=== PATIENT | male | born 1945 | race African-American/Black ===

== ENCOUNTER 2017-12-22 08:38 | Emergency (ER) | payer MEDICARE, OTHER ==
[~2017-12-22] VITALS: Ht 182.9 cm; Wt 87.0 kg
[~2017-12-22 08:38] MED LIST: AMLO10TA80 PO; BUSPIRONE HCL PO; CLOP75TA16 PO; COLC0.6C3 MT; FOLI-43 MT; LEVO500T2 MT; LISI2.5T47 MT
[2017-12-22 08:41] VITALS: BP 132/60
[2017-12-22] MEDS ORDERED: PERMETHRIN 5% CREAM 60GM TOP ONE (09:00)
== END 2017-12-22 10:00 | disposition home or self-care (01) ==
LOC: ER 08:38
DX: M25.511 Pain in right shoulder (principal); R53.1 Weakness; R11.2 Nausea with vomiting, unspecified; I10 Essential (primary) hypertension; F17.210 Nicotine dependence, cigarettes, uncomplicated; I25.2 Old myocardial infarction; Z86.73 Personal history of transient ischemic attack (TIA), and cerebral infarction without residual deficits; Z88.6 Allergy status to analgesic agent; Z79.899 Other long term (current) drug therapy
CPT/HCPCS: 99283

== ENCOUNTER 2018-05-10 11:54 | Inpatient (IN) | payer MEDICARE, OTHER ==
[~2018-05-10] VITALS: Ht 182.9 cm; Wt 95.3 kg
[~2018-05-10 11:54] MED LIST changes: +FLUO-124 MT
[2018-05-10] MEDS ORDERED: SODIUM CHLORIDE 0.9% 1,000 ML IV ONE (12:54)
[2018-05-10] MEDS ORDERED: LEVETIRACETAM 500MG PREMIX 100 ML IV ONE (13:00)
[2018-05-10 14:29] LABS: CHLORIDE 101 mEq/L (98-107)
[2018-05-10 14:31] LABS: INR 1.1; PARTIAL THROMBOPLASTIN TIME 28.3 sec (23.4-31.0); PROTHROMBIN TIME 11.5 sec (9.1-11.1)
[2018-05-10 14:32] LABS: HEMATOCRIT. 33.6 % (42.0-52.0); HEMOGLOBIN. 10.9 g/dL (14.0-18.0); MEAN CORPUSCULAR HEMOGLOBIN 31.8 pg (28.0-32.0); MEAN PLATELET VOLUME 8.5 fl (7.4-10.4); PLATELET 235 x1000/uL (130-400); RED BLOOD CELL COUNT 3.43 mill/uL (4.7-6.1); RED CELL DISTRIBUTION WIDTH 18.2 % (11.6-14.6)
[2018-05-10 14:33] LABS: ETHANOL BLOOD < 10 mg/dL
[2018-05-10 14:59] LABS: PLATELET ESTIMATE NORMAL
[2018-05-10] MEDS ORDERED: CEFTRIAXONE 1 G PREMIX 50 ML IV ONE (18:00)
[2018-05-10 19:15] LABS: CLARITY URINE CLOUDY (CLEAR); COLOR URINE YELLOW (YELLOW); KETONES URINE 1+ (NEGATIVE); LEUKOCYTE ESTERASE URINE NEGATIVE (NEGATIVE); NITRITE URINE NEGATIVE (NEGATIVE); OCCULT BLOOD URINE 2+ (NEGATIVE); PROTEIN URINE 3+ (NEGATIVE); SPECIFIC GRAVITY URINE 1.018 (1.005-1.030); UROBILINOGEN URINE 0.2 E.U./dL (0.2-1.0)
[2018-05-10 19:29] LABS: *AMPHETAMINES SCREEN URINE NEGATIVE (NEGATIVE)
[2018-05-10 19:30] LABS: *BARBITURATES SCREEN URINE NEGATIVE (NEGATIVE); *BENZODIAZEPINES SCREEN URINE NEGATIVE (NEGATIVE); *COCAINE SCREEN URINE NEGATIVE (NEGATIVE); METHADONE URINE SCREEN NEGATIVE (NEGATIVE); OPIATES URINE SCREEN NEGATIVE (NEGATIVE); PHENCYCLIDINE URINE SCREEN NEGATIVE (NEGATIVE)
[2018-05-10 19:31] LABS: CANNABINOID URINE SCREEN NEGATIVE (NEGATIVE)
[2018-05-10 20:20] VITALS: BP 158/64
[2018-05-10 20:30] VITALS: BP 158/64
[2018-05-11] VITALS (7 sets, daily range): BP systolic 124–163; BP diastolic 54–97
[2018-05-11 07:48] LABS: BASOPHILS % 0.2 % (0.0-2.0); EOSINOPHILS % 0.2 % (0.0-5.0); HEMOGLOBIN. 10.1 g/dL (14.0-18.0); LYMPHOCYTES % 8.4 % (20.0-50.0); MEAN CORPUSCULAR HEMOGLOBIN 32.2 pg (28.0-32.0); MEAN CORPUSCULAR VOLUME 95.8 fL (80.0-94.0); MEAN PLATELET VOLUME 8.5 fl (7.4-10.4); MONOCYTES % 6.8 % (2.0-8.0); NEUTROPHILS % 84.4 % (40.0-76.0); PLATELET 181 x1000/uL (130-400); RED BLOOD CELL COUNT 3.14 mill/uL (4.7-6.1); RED CELL DISTRIBUTION WIDTH 18.1 % (11.6-14.6)
[2018-05-11 07:58] LABS: CHLORIDE 105 mEq/L (98-107)
[2018-05-11] MEDS ORDERED: MEDICATION NOT ON FORMULARY EA (Folic Acid 1 TAB) MT SCH (14:15)
[2018-05-11] MEDS ORDERED: MEDICATION NOT ON FORMULARY EA (Fluoxetine Hcl 1 CAP) MT SCH (14:15)
[2018-05-11] MEDS ORDERED: MEDICATION NOT ON FORMULARY EA (Clopidogrel Bisulfate (Plavix) 75 MG) PO SCH (14:15)
[2018-05-11] MEDS ORDERED: COLCHICINE MT SCH (14:15)
[2018-05-11] MEDS: FLUOXETINE HCL 20MG CAPSULE PO SCH (15:05)
[2018-05-11] MEDS: AMLODIPINE 10MG TABLET PO SCH (15:05)
[2018-05-11] MEDS: COLCHICINE 0.6MG TABLET PO SCH (15:05)
[2018-05-11] MEDS: CLOPIDOGREL 75MG TABLET PO SCH (15:05)
[2018-05-11] MEDS: FOLIC ACID 1MG TABLET PO SCH (15:05)
[2018-05-11] MEDS: CEFTRIAXONE 1 G PREMIX 50 ML IV SCH (17:59)
[2018-05-12] VITALS: BP 147/74
[2018-05-12 04:00] VITALS: BP 131/74
[2018-05-12 08:00] VITALS: BP 149/74
[2018-05-12] MEDS: COLCHICINE 0.6MG TABLET PO SCH (08:20)
[2018-05-12] MEDS: AMLODIPINE 10MG TABLET PO SCH (08:20)
[2018-05-12] MEDS: FLUOXETINE HCL 20MG CAPSULE PO SCH (08:20)
[2018-05-12] MEDS: CLOPIDOGREL 75MG TABLET PO SCH (08:20)
[2018-05-12] MEDS: FOLIC ACID 1MG TABLET PO SCH (08:20)
[2018-05-12 12:00] VITALS: BP_SYST 120; BP_SYST 147; BP_SYST 153; BP_DIAS 69; BP_DIAS 76; BP_DIAS 78
[2018-05-12] MEDS ORDERED: SODIUM CHLORIDE 0.9% 1,000 ML IV SCH (15:30)
[2018-05-12] MEDS ORDERED: IPRATROPIUM/ALBUTEROL 0.5-3(2.5)MG/3ML NEB INH PRN (15:30)
[2018-05-12] MEDS ORDERED: ACETAMINOPHEN 325MG TABLET PO PRN (15:30)
[2018-05-12] MEDS ORDERED: ONDANSETRON HCL 4MG/2ML INJ IV PRN (15:30)
[2018-05-12 16:00] VITALS: BP 142/70
[2018-05-12] MEDS: CEFTRIAXONE 1 G PREMIX 50 ML IV SCH (18:16)
[2018-05-12 18:59] LABS: BASOPHILS % 0.5 % (0.0-2.0); EOSINOPHILS % 2.5 % (0.0-5.0); HEMATOCRIT. 31.4 % (42.0-52.0); HEMOGLOBIN. 10.4 g/dL (14.0-18.0); MEAN CORPUSCULAR HEMOGLOBIN 32.5 pg (28.0-32.0); MEAN CORPUSCULAR VOLUME 98.2 fL (80.0-94.0); MEAN PLATELET VOLUME 8.5 fl (7.4-10.4); MONOCYTES % 8.6 % (2.0-8.0); NEUTROPHILS % 68.4 % (40.0-76.0); PLATELET 149 x1000/uL (130-400); RED BLOOD CELL COUNT 3.19 mill/uL (4.7-6.1); RED CELL DISTRIBUTION WIDTH 18.1 % (11.6-14.6)
[2018-05-12 19:17] LABS: CHLORIDE 103 mEq/L (98-107)
[2018-05-12 20:00] VITALS: BP 148/73
[2018-05-12] MEDS ORDERED: SODIUM CHLORIDE 0.9% INJ 3ML FLUSH IVF SCH (22:00)
[2018-05-13] VITALS (7 sets, daily range): BP systolic 114–156; BP diastolic 47–90
[2018-05-13 06:51] LABS: BASOPHILS % 0.7 % (0.0-2.0); EOSINOPHILS % 4.4 % (0.0-5.0); HEMATOCRIT. 28.4 % (42.0-52.0); HEMOGLOBIN. 9.5 g/dL (14.0-18.0); LYMPHOCYTES % 14.8 % (20.0-50.0); MEAN CORPUSCULAR HEMOGLOBIN 32.5 pg (28.0-32.0); MEAN CORPUSCULAR VOLUME 97.4 fL (80.0-94.0); MEAN PLATELET VOLUME 8.4 fl (7.4-10.4); MONOCYTES % 10.8 % (2.0-8.0); NEUTROPHILS % 69.3 % (40.0-76.0); PLATELET 142 x1000/uL (130-400); RED BLOOD CELL COUNT 2.91 mill/uL (4.7-6.1); RED CELL DISTRIBUTION WIDTH 17.8 % (11.6-14.6)
[2018-05-13 07:43] LABS: CHLORIDE 106 mEq/L (98-107)
[2018-05-13 07:50] LABS: LDL CHOLESTEROL 43 mg/dL (5-100)
[2018-05-13 07:51] LABS: HDL CHOLESTEROL 70 mg/dL (40-59)
[2018-05-13 08:03] LABS: VITAMIN B12 SERUM >2000 pg/mL pg/mL (211-911)
[2018-05-13] MEDS: FOLIC ACID 1MG TABLET PO SCH (08:57)
[2018-05-13] MEDS: CLOPIDOGREL 75MG TABLET PO SCH (08:57)
[2018-05-13] MEDS: COLCHICINE 0.6MG TABLET PO SCH (08:57)
[2018-05-13] MEDS: AMLODIPINE 10MG TABLET PO SCH (08:58)
[2018-05-13] MEDS: FLUOXETINE HCL 20MG CAPSULE PO SCH (08:59)
[2018-05-13] MEDS: CEFTRIAXONE 1 G PREMIX 50 ML IV SCH (17:43)
[2018-05-14] VITALS: BP 133/70
[2018-05-14 04:00] VITALS: BP 137/78
[2018-05-14 08:00] VITALS: BP_SYST 128; BP_SYST 131; BP_SYST 149; BP_DIAS 72; BP_DIAS 73
[2018-05-14] MEDS: CLOPIDOGREL 75MG TABLET PO SCH (09:11)
[2018-05-14] MEDS: FOLIC ACID 1MG TABLET PO SCH (09:11)
[2018-05-14] MEDS: FLUOXETINE HCL 20MG CAPSULE PO SCH (09:11)
[2018-05-14] MEDS: COLCHICINE 0.6MG TABLET PO SCH (09:11)
[2018-05-14] MEDS: AMLODIPINE 10MG TABLET PO SCH (09:12)
[2018-05-14] MEDS ORDERED: AMOX-424 MT (11:52)
[2018-05-14 12:00] VITALS: BP 152/68
[2018-05-14 15:56] VITALS: BP 130/68
== END 2018-05-14 17:00 | disposition home health service (06) | DRG 871 ==
LOC: ER 12:49 → 5WST 16:28 → ENRESERV 18:50
PROVIDERS: ADMIT Family Medicine; ATTEND Family Medicine
DX: A41.9 Sepsis, unspecified organism (principal); N17.0 Acute kidney failure with tubular necrosis; N39.0 Urinary tract infection, site not specified; E87.2 Acidosis; G90.8 Other disorders of autonomic nervous system; G40.909 Epilepsy, unspecified, not intractable, without status epilepticus; I10 Essential (primary) hypertension; F32.9 Major depressive disorder, single episode, unspecified; F17.210 Nicotine dependence, cigarettes, uncomplicated; R26.9 Unspecified abnormalities of gait and mobility; F41.9 Anxiety disorder, unspecified; I25.10 Atherosclerotic heart disease of native coronary artery without angina pectoris; M10.9 Gout, unspecified; M13.0 Polyarthritis, unspecified; F10.129 Alcohol abuse with intoxication, unspecified; Z79.2 Long term (current) use of antibiotics; Z79.899 Other long term (current) drug therapy; Z88.6 Allergy status to analgesic agent
CPT/HCPCS: 36415; 70551; 71045; 76770; 80048; 80061; 80305; 82607; 82962; 83880; 84443; 84484; 93005; 93306; 93880; 96365; 96366; 96368; 97162; 99285; G0482; J0696; J1953; J7030; J7050

== ENCOUNTER 2018-06-09 07:58 | Inpatient (IN) | payer MEDICARE, OTHER ==
[~2018-06-09] VITALS: Ht 180.3 cm; Wt 90.7 kg
[~2018-06-09 07:58] MED LIST changes: +AMOX-424 MT; -LEVO500T2 MT
[2018-06-09] MEDS ORDERED: LORAZEPAM 2MG/ML CPJ ONE (08:19)
[2018-06-09] MEDS ORDERED: SODIUM CHLORIDE 0.9% 1,000 ML IV ONE (08:20)
[2018-06-09 08:37] LABS: BASOPHILS % 0.4 % (0.0-2.0); EOSINOPHILS % 0.2 % (0.0-5.0); HEMATOCRIT. 36.6 % (42.0-52.0); HEMOGLOBIN. 11.9 g/dL (14.0-18.0); LYMPHOCYTES % 11.7 % (20.0-50.0); MEAN CORPUSCULAR HEMOGLOBIN 32.2 pg (28.0-32.0); MEAN PLATELET VOLUME 9.1 fl (7.4-10.4); MONOCYTES % 4.8 % (2.0-8.0); NEUTROPHILS % 82.9 % (40.0-76.0); PLATELET 234 x1000/uL (130-400); RED CELL DISTRIBUTION WIDTH 16.9 % (11.6-14.6)
[2018-06-09 08:42] LABS: INR 1.2; PROTHROMBIN TIME 11.6 sec (9.1-11.1)
[2018-06-09 08:43] LABS: CHLORIDE 105 mEq/L (98-107)
[2018-06-09 08:50] LABS: ETHANOL BLOOD < 10 mg/dL
[2018-06-09 08:53] LABS: CARBAMAZEPINE < 0.5 ug/mL (4-12)
[2018-06-09 08:54] LABS: CREATINE KINASE 121 IU/L (39-308)
[2018-06-09 09:05] LABS: PHENOBARBITAL < 2.1 ug/mL (15.0-40.0)
[2018-06-09] MEDS ORDERED: LACTULOSE 20G/30ML UDC PO ONE (09:15)
[2018-06-09] MEDS ORDERED: LORAZEPAM 2MG/ML CPJ IV ONE (09:30)
[2018-06-09] MEDS ORDERED: LEVETIRACETAM 1000MG/100ML 100 ML IV ONE (10:30)
[2018-06-09 10:42] LABS: CLARITY URINE CLOUDY (CLEAR); COLOR URINE YELLOW (YELLOW); KETONES URINE NEGATIVE (NEGATIVE); LEUKOCYTE ESTERASE URINE NEGATIVE (NEGATIVE); NITRITE URINE NEGATIVE (NEGATIVE); OCCULT BLOOD URINE TRACE (NEGATIVE); PROTEIN URINE 2+ (NEGATIVE); SPECIFIC GRAVITY URINE 1.018 (1.005-1.030); UROBILINOGEN URINE 0.2 E.U./dL (0.2-1.0)
[2018-06-09 11:17] LABS: *AMPHETAMINES SCREEN URINE NEGATIVE (NEGATIVE); *BARBITURATES SCREEN URINE NEGATIVE (NEGATIVE); *BENZODIAZEPINES SCREEN URINE PRESUMTIVE POSITIVE (NEGATIVE); *COCAINE SCREEN URINE NEGATIVE (NEGATIVE); METHADONE URINE SCREEN NEGATIVE (NEGATIVE); OPIATES URINE SCREEN NEGATIVE (NEGATIVE)
[2018-06-09 11:18] LABS: CANNABINOID URINE SCREEN NEGATIVE (NEGATIVE); PHENCYCLIDINE URINE SCREEN NEGATIVE (NEGATIVE)
[2018-06-09] MEDS ORDERED: MAGNESIUM/ALUMINUM HYDROXIDE/SIMETHICONE 30ML UDC PO PRN (12:00)
[2018-06-09] MEDS ORDERED: IPRATROPIUM/ALBUTEROL 0.5-3(2.5)MG/3ML NEB INH PRN (12:00)
[2018-06-09] MEDS ORDERED: NA PHOS,M-B/NA PHOS,DI-BA ENEMA 118ML PR PRN (12:00)
[2018-06-09] MEDS ORDERED: ONDANSETRON HCL 4MG/2ML INJ IV PRN (12:00)
[2018-06-09] MEDS ORDERED: GUAIFENESIN 200MG/10ML SUGAR FREE UDC PO PRN (12:00)
[2018-06-09] MEDS ORDERED: TRAMADOL 50MG TABLET PO PRN (12:00)
[2018-06-09] MEDS ORDERED: CLONIDINE 0.1MG TABLET PO PRN (12:00)
[2018-06-09] MEDS ORDERED: DOCUSATE SODIUM 100MG CAPSULE PO PRN (12:00)
[2018-06-09] MEDS ORDERED: ACETAMINOPHEN 325MG TABLET PO PRN (12:00)
[2018-06-09] MEDS ORDERED: DIPHENHYDRAMINE 50MG/ML VIAL IV PRN (12:00)
[2018-06-09] MEDS ORDERED: NITROGLYCERIN 0.4MG TABLET SL SL PRN (12:00)
[2018-06-09 14:45] VITALS: BP 175/70
[2018-06-09 14:51] VITALS: BP 175/70
[2018-06-09 16:00] VITALS: BP 174/74
[2018-06-09 17:30] VITALS: BP 151/75
[2018-06-09] MEDS: ENOXAPARIN 40MG/0.4ML SYR SUBCUT SCH (17:52)
[2018-06-09] MEDS ORDERED: LEVOFLOXACIN 500MG PREMIX 100 ML IV SCH (18:00)
[2018-06-09 20:00] VITALS: BP 170/66
[2018-06-09] MEDS: METOPROLOL TARTRATE 25MG TABLET PO SCH (20:41)
[2018-06-09] MEDS: LISINOPRIL 20MG TABLET PO SCH (20:41)
[2018-06-09] MEDS ORDERED: LEVETIRACETAM 500MG PREMIX 100 ML IV SCH (21:00)
[2018-06-09 21:02] LABS: CREATINE KINASE MB FRACTION 4.9 ng/mL (0.5-3.6)
[2018-06-09] MEDS: FAMOTIDINE 20MG TABLET PO SCH (21:06)
[2018-06-09] MEDS: LACTULOSE 20G/30ML UDC PO SCH (21:07)
[2018-06-09] MEDS: ZOLPIDEM TARTRATE 5MG TABLET PO PRN (21:07)
[2018-06-09] MEDS: LEVETIRACETAM 500MG in SODIUM CHLORIDE 0.9% 100ML IV SCH (21:08)
[2018-06-09 21:44] LABS: FOLIC ACID (FOLATE) SERUM > 20.00 ng/mL (>5.38)
[2018-06-09 21:51] LABS: VITAMIN B12 SERUM 611 pg/mL (211-911)
[2018-06-09 23:55] LABS: CREATINE KINASE MB FRACTION 5.3 ng/mL (0.5-3.6)
[2018-06-10 00:28] VITALS: BP 113/62
[2018-06-10 04:00] VITALS: BP 131/65
[2018-06-10] MEDS: LACTULOSE 20G/30ML UDC PO SCH ×3 (06:09→20:57)
[2018-06-10 07:30] VITALS: BP 137/64
[2018-06-10] MEDS: LISINOPRIL 20MG TABLET PO SCH ×2 (08:53→20:57)
[2018-06-10] MEDS: FAMOTIDINE 20MG TABLET PO SCH ×2 (08:53→20:57)
[2018-06-10] MEDS: CLOPIDOGREL 75MG TABLET PO SCH (08:53)
[2018-06-10] MEDS: METOPROLOL TARTRATE 25MG TABLET PO SCH ×2 (08:53→20:57)
[2018-06-10] MEDS: LEVETIRACETAM 500MG in SODIUM CHLORIDE 0.9% 100ML IV SCH ×2 (08:54→20:57)
[2018-06-10 12:00] VITALS: BP 128/60
[2018-06-10 16:30] VITALS: BP 109/50
[2018-06-10] MEDS: ENOXAPARIN 40MG/0.4ML SYR SUBCUT SCH (17:05)
[2018-06-10] MEDS: LEVOFLOXACIN 500MG PREMIX 100 ML IV SCH (17:06)
[2018-06-10 20:00] VITALS: BP 124/58
[2018-06-10] MEDS: ZOLPIDEM TARTRATE 5MG TABLET PO PRN (20:57)
[2018-06-11] VITALS: BP 130/59
[2018-06-11 04:00] VITALS: BP 110/58
[2018-06-11] MEDS: LACTULOSE 20G/30ML UDC PO SCH ×2 (05:55→14:20)
[2018-06-11 08:00] VITALS: BP 116/63
[2018-06-11] MEDS: LISINOPRIL 20MG TABLET PO SCH (09:09)
[2018-06-11] MEDS: METOPROLOL TARTRATE 25MG TABLET PO SCH (09:09)
[2018-06-11] MEDS: FAMOTIDINE 20MG TABLET PO SCH (09:10)
[2018-06-11] MEDS: LEVETIRACETAM 500MG in SODIUM CHLORIDE 0.9% 100ML IV SCH (09:10)
[2018-06-11] MEDS: CLOPIDOGREL 75MG TABLET PO SCH (09:12)
[2018-06-11] MEDS: ENOXAPARIN 40MG/0.4ML SYR SUBCUT SCH (17:32)
[2018-06-11] MEDS: LEVOFLOXACIN 500MG PREMIX 100 ML IV SCH (17:33)
[2018-06-11 18:02] VITALS: BP 94/58
[2018-06-11 19:44] VITALS: BP 114/55
== END 2018-06-11 20:19 | DRG 100 ==
LOC: ER 07:58 → EDBEDREQ 08:30 → 7WST 10:26 → EDBEDREQ 10:29 → ENRESERV 12:27
PROVIDERS: ADMIT Internal Medicine; ATTEND Internal Medicine
DX: G40.409 Other generalized epilepsy and epileptic syndromes, not intractable, without status epilepticus (principal); G92 Toxic encephalopathy; M62.82 Rhabdomyolysis; F10.239 Alcohol dependence with withdrawal, unspecified; K72.90 Hepatic failure, unspecified without coma; F32.9 Major depressive disorder, single episode, unspecified; Y90.9 Presence of alcohol in blood, level not specified; F41.9 Anxiety disorder, unspecified; E83.51 Hypocalcemia; I10 Essential (primary) hypertension; D53.9 Nutritional anemia, unspecified; Z86.73 Personal history of transient ischemic attack (TIA), and cerebral infarction without residual deficits; Z79.02 Long term (current) use of antithrombotics/antiplatelets; Z79.82 Long term (current) use of aspirin; Z79.899 Other long term (current) drug therapy; Z79.2 Long term (current) use of antibiotics; Z88.6 Allergy status to analgesic agent; Z88.8 Allergy status to other drugs, medicaments and biological substances; Z71.41 Alcohol abuse counseling and surveillance of alcoholic
CPT/HCPCS: 36415; 70551; 71045; 76700; 80061; 80156; 80165; 80184; 80185; 80305; 82140; 82550; 82553; 82607; 82746; 83036; 83540; 83550; 83605; 84484; 93005; 93970; 96361; 96365; 96366; 97162; 97166; 99291; G0482; J1200; J1650; J1953; J1956; J2060; J7030; J7040; J7050

== ENCOUNTER 2018-09-01 20:15 | Inpatient (IN) | payer BC, MEDICARE, OTHER ==
[~2018-09-01] VITALS: Ht 190.5 cm; Wt 105.2 kg
[2018-09-01] MEDS ORDERED: METHYLPREDNISOLONE SOD SUCC 125 MG/2 ML VIAL IV STA (23:37)
[2018-09-01] MEDS ORDERED: ALBUTEROL (0.083%) 2.5MG/3ML NEB HHN STA (23:37)
[2018-09-01] MEDS ORDERED: IPRATROPIUM BROMIDE (0.02%) 0.5MG/2.5ML NEB HHN STA (23:37)
[2018-09-01] MEDS ORDERED: CLOPIDOGREL 75MG TABLET PO ONE (23:45)
[2018-09-01] MEDS ORDERED: NITROGLYCERIN OINT 1GM/INCH UDPKT TD ONE (23:45)
[2018-09-01] MEDS ORDERED: FUROSEMIDE 40MG/4ML VIAL IV ONE (23:45)
[2018-09-02 00:24] LABS: BASOPHILS % 0.7 % (0.0-2.0); EOSINOPHILS % 0.8 % (0.0-5.0); HEMATOCRIT. 31.9 % (42.0-52.0); HEMOGLOBIN. 10.3 g/dL (14.0-18.0); LYMPHOCYTES % 19.9 % (20.0-50.0); MEAN CORPUSCULAR HEMOGLOBIN 29.4 pg (28.0-32.0); MEAN CORPUSCULAR VOLUME 90.9 fL (80.0-94.0); MEAN PLATELET VOLUME 7.2 fl (7.4-10.4); MONOCYTES % 10.4 % (2.0-8.0); NEUTROPHILS % 68.2 % (40.0-76.0); PLATELET 438 x1000/uL (130-400); RED CELL DISTRIBUTION WIDTH 17.2 % (11.6-14.6)
[2018-09-02 00:38] LABS: CHLORIDE 100 mEq/L (98-107)
[2018-09-02 00:39] LABS: INR 1.2; PARTIAL THROMBOPLASTIN TIME 30.1 sec (23.4-31.0)
[2018-09-02 00:42] LABS: ETHANOL BLOOD 79 mg/dL
[2018-09-02 00:48] LABS: *AMPHETAMINES SCREEN URINE NEGATIVE (NEGATIVE); *BARBITURATES SCREEN URINE NEGATIVE (NEGATIVE)
[2018-09-02 00:49] LABS: *BENZODIAZEPINES SCREEN URINE NEGATIVE (NEGATIVE); *COCAINE SCREEN URINE NEGATIVE (NEGATIVE); METHADONE URINE SCREEN NEGATIVE (NEGATIVE)
[2018-09-02 00:50] LABS: CANNABINOID URINE SCREEN NEGATIVE (NEGATIVE); OPIATES URINE SCREEN NEGATIVE (NEGATIVE); PHENCYCLIDINE URINE SCREEN NEGATIVE (NEGATIVE)
[2018-09-02] MEDS ORDERED: LEVETIRACETAM 500MG PREMIX 100 ML IV ONE (03:45)
[2018-09-02] MEDS ORDERED: FOLIC ACID 1 MG, THIAMINE HCL 100 MG, MVI, ADULT NO.1 10 ML in DEXTROSE 5% WATER 1,000 ML IV ONE ×4 (03:45)
[2018-09-02] MEDS ORDERED: LORAZEPAM 2MG/ML CPJ IV ONE (03:45)
[2018-09-02 04:06] LABS: CARBAMAZEPINE < 0.5 ug/mL (4-12); PHENOBARBITAL < 2.1 ug/mL (15.0-40.0); VALPROIC ACID < 3.0 ug/mL (50-100)
[2018-09-02] MEDS ORDERED: HYDRALAZINE 20MG/ML VIAL IV SCH (07:15)
[2018-09-02 08:00] VITALS: BP 171/86
[2018-09-02] MEDS ORDERED: ONDANSETRON HCL 4MG/2ML INJ IV PRN (11:30)
[2018-09-02] MEDS ORDERED: IPRATROPIUM/ALBUTEROL 0.5-3(2.5)MG/3ML NEB INH PRN (11:30)
[2018-09-02] MEDS ORDERED: HYDROCODONE/ACETAMINOPHEN 5/325MG TABLET PO PRN (11:30)
[2018-09-02] MEDS ORDERED: ACETAMINOPHEN 325MG TABLET PO PRN (11:30)
[2018-09-02 12:00] VITALS: BP 169/83
[2018-09-02] MEDS ORDERED: MVI, ADULT NO.1 10 ML, FOLIC ACID 1 MG, THIAMINE HCL 100 MG in SODIUM CHLORIDE 0.9% 1,0... IV ONE ×4 (13:00)
[2018-09-02] MEDS: METHYLPREDNISOLONE SOD SUCC 40 MG/ML VIAL IV SCH ×2 (13:00→22:01)
[2018-09-02 13:01] VITALS: BP 169/83
[2018-09-02] MEDS: LEVETIRACETAM 500 MG in SODIUM CHLORIDE 0.9% 100 ML IV SCH ×2 (14:07→22:01)
[2018-09-02] MEDS: CLONIDINE 0.1MG TABLET PO PRN (14:08)
[2018-09-02] MEDS: ENOXAPARIN 30MG/0.3ML SYR SUBCUT SCH ×2 (14:27→21:42)
[2018-09-02] MEDS: LORAZEPAM 2MG/ML CPJ IV PRN (15:50)
[2018-09-02 16:00] VITALS: BP 197/107
[2018-09-02] MEDS: LEVOFLOXACIN 500MG PREMIX 100 ML IV SCH (17:26)
[2018-09-02 20:00] VITALS: BP 158/85
[2018-09-02] MEDS ORDERED: TRAZ-212 PO (20:48)
[2018-09-02] MEDS ORDERED: TRAZODONE HCL 50MG TABLET PO SCH (22:00)
[2018-09-03] VITALS (7 sets, daily range): BP systolic 131–165; BP diastolic 70–84
[2018-09-03 00:03] LABS: CREATINE KINASE 2679 IU/L (39-308)
[2018-09-03] MEDS: CLONIDINE 0.1MG TABLET PO PRN ×2 (00:12→13:55)
[2018-09-03 06:06] LABS: BASOPHILS % 0.2 % (0.0-2.0); HEMATOCRIT. 33.7 % (42.0-52.0); HEMOGLOBIN. 10.8 g/dL (14.0-18.0); LYMPHOCYTES % 17.1 % (20.0-50.0); MEAN CORPUSCULAR HEMOGLOBIN 29.3 pg (28.0-32.0); MEAN CORPUSCULAR VOLUME 91.4 fL (80.0-94.0); MEAN PLATELET VOLUME 8.3 fl (7.4-10.4); MONOCYTES % 12.5 % (2.0-8.0); NEUTROPHILS % 70.2 % (40.0-76.0); PLATELET 398 x1000/uL (130-400); RED BLOOD CELL COUNT 3.68 mill/uL (4.7-6.1); RED CELL DISTRIBUTION WIDTH 17.5 % (11.6-14.6)
[2018-09-03 06:21] LABS: CHLORIDE 103 mEq/L (98-107)
[2018-09-03 06:28] LABS: LDL CHOLESTEROL 63 mg/dL (5-100)
[2018-09-03 06:29] LABS: HDL CHOLESTEROL 76 mg/dL (40-59)
[2018-09-03] MEDS: LEVETIRACETAM 500 MG in SODIUM CHLORIDE 0.9% 100 ML IV SCH (09:38)
[2018-09-03] MEDS: METHYLPREDNISOLONE SOD SUCC 40 MG/ML VIAL IV SCH (09:38)
[2018-09-03] MEDS: ENOXAPARIN 30MG/0.3ML SYR SUBCUT SCH (09:39)
[2018-09-03] MEDS: LORAZEPAM 2MG/ML CPJ IV PRN (09:39)
[2018-09-03 11:19] LABS: BG BASE EXCESS -0.5 mmol/L (-2.0-2.0); BG CARBOXYHEMOGLOBIN 0.4 % (0.5-1.5); BG DEOXYHEMOGLOBIN 5.3 % (0.0-5.0); BG FRACTION INSPIRED OXYGEN 21; BG HCO3 ACT 23.3 mmol/L (22.0-26.0); BG METHEMOGLOBIN 0.3 % (0.0-1.5); BG OXYGEN SATURATION 94.7 % (92.0-98.5); BG PCO2 34.9 mmHg (35.0-45.0); BG PH 7.442 (7.350-7.450); BG PO2 77.6 mmHg (75.0-100.0); BG SAMPLE SITE RIGHT RADIAL; BG VENT MODE ROOM AIR
[2018-09-03] MEDS: LEVOFLOXACIN 500MG PREMIX 100 ML IV SCH (13:55)
[2018-09-03] MEDS ORDERED: AMLODIPINE 5MG TABLET PO NR (16:15)
[2018-09-03] MEDS ORDERED: CLOPIDOGREL 75MG TABLET PO SCH (16:30)
[2018-09-03] MEDS ORDERED: SODIUM CHLORIDE 0.45% 1,000 ML IV SCH (16:45)
[2018-09-03] MEDS ORDERED: LORAZEPAM 2MG/ML CPJ IV PRN (17:30)
[2018-09-03] MEDS ORDERED: BUSPIRONE HCL 10MG TABLET PO NR (20:15)
[2018-09-03] MEDS ORDERED: HYDRALAZINE HCL 25MG TABLET PO SCH (21:00)
[2018-09-03] MEDS ORDERED: AMLODIPINE 5MG TABLET PO SCH (21:00)
== END 2018-09-03 22:45 | disposition home or self-care (01) | DRG 100 ==
LOC: ER 20:15 → 5WST 09-02 01:13 → EDBEDREQ 09-02 01:15 → EDBEDREQTM 09-02 01:15 → ENRESERV 09-02 01:53 → CANRESERV 09-02 01:53 → CANBEDREQ 09-02 02:06 → EDBEDREQ 09-02 05:20 → ENRESERV 09-02 07:03
PROVIDERS: ADMIT Internal Medicine; ATTEND Internal Medicine
DX: G40.909 Epilepsy, unspecified, not intractable, without status epilepticus (principal); J18.9 Pneumonia, unspecified organism; J44.1 Chronic obstructive pulmonary disease with (acute) exacerbation; M62.82 Rhabdomyolysis; J44.0 Chronic obstructive pulmonary disease with (acute) lower respiratory infection; D64.9 Anemia, unspecified; D72.819 Decreased white blood cell count, unspecified; F17.200 Nicotine dependence, unspecified, uncomplicated; I11.0 Hypertensive heart disease with heart failure; R73.9 Hyperglycemia, unspecified; I25.10 Atherosclerotic heart disease of native coronary artery without angina pectoris; F10.20 Alcohol dependence, uncomplicated; I27.20 Pulmonary hypertension, unspecified; I44.1 Atrioventricular block, second degree; I50.9 Heart failure, unspecified; Y90.3 Blood alcohol level of 60-79 mg/100 ml; Z86.73 Personal history of transient ischemic attack (TIA), and cerebral infarction without residual deficits; Z88.6 Allergy status to analgesic agent; Z91.19 Patient's noncompliance with other medical treatment and regimen
CPT/HCPCS: 36415; 36600; 71045; 80061; 80156; 80165; 80184; 80185; 80305; 80320; 82375; 82550; 82553; 82805; 83036; 83880; 84484; 93005; 93306; 96365; 96375; 97116; 97162; 99291; J0360; J1650; J1940; J1953; J1956; J2060; J2920; J2930; J3411; J3490; J7030; J7040; J7050; J7070; G0480